=== PATIENT | female | born 1985 ===

== ENCOUNTER → 2016-03-17 | Outpatient (CLI) | payer OTHER ==
[~2016-03-17] MED LIST: MTR600X PO; OXYC-57 PO; PREN1TAB29 PO
== END | disposition home or self-care (01) ==
LOC: C.LABSPEC 10:57
PROVIDERS: ATTEND Obstetrics & Gynecology
DX: Z34.83 Encounter for supervision of other normal pregnancy, third trimester (principal)

== ENCOUNTER → 2016-03-24 | Outpatient (CLI) | payer OTHER ==
[2016-03-24 17:05] LABS: ALT/SGPT 25 U/L (12-78); BLOOD UREA NITROGEN 14 mg/dl (7-18); BUN/CREATININE RATIO 14.7 (10-20); CALCIUM 9.2 mg/dl (8.5-10.1); CARBON DIOXIDE 21 mmol/L (21-32); CHLORIDE 105 mmol/L (98-107); CREATININE 0.94 mg/dl (0.60-1.20); GLUCOSE 66 mg/dl (70-99); POTASSIUM 3.9 mmol/L (3.5-5.1); SODIUM 137 mmol/L (136-145)
[2016-03-24 17:07] LABS: HEMATOCRIT 32.3 % (37-47); MEAN CELL VOLUME 83.7 fL (80-100); MEAN CORPUSCULAR HEMOGLOBIN 27.5 pg (25-34); MEAN CORPUSCULAR HGB CONC 32.8 g/dl (32-36); MEAN PLATELET VOLUME 13.4 fL (7.4-10.4); PLATELET COUNT 117 K/uL (130-400); PLT ESTIMATE NORMAL; RED BLOOD COUNT 3.86 M/uL (4.2-5.4); WHITE BLOOD COUNT 5.78 K/uL (4.8-10.8)
[2016-03-24 17:08] LABS: ALB/GLOB RATIO 0.6 (0.9-2); ALKALINE PHOSPHATASE 98 U/L (45-117); AST/SGOT 30 U/L (15-37)
== END | disposition home or self-care (01) ==
LOC: C.LAB1850 15:06
PROVIDERS: ATTEND Obstetrics & Gynecology
DX: O13.3 Gestational [pregnancy-induced] hypertension without significant proteinuria, third trimester (principal)

== ENCOUNTER 2016-03-25 09:29 | Inpatient (IN) | payer OTHER ==
[2016-03-25] VITALS (10 sets, daily range): BP systolic 127–147; BP diastolic 80–92; PULSE 68–92; TEMP 36.5–36.9; O2SAT 95–98; Ht 177.8 cm; Wt 112.0 kg
[~2016-03-25] VITALS: Ht 177.8 cm; Wt 112.0 kg
[~2016-03-25 09:29] MED LIST changes: +CEFAZOLIN IV 2,000 MG in DEXTROSE 5% 50ML 50 ML IV SCH; -MTR600X PO; -OXYC-57 PO; -PREN1TAB29 PO
[2016-03-25] MEDS ORDERED: LACTATED RINGER'S 1000ML 1,000 ML IV ONE (09:31)
[2016-03-25] MEDS ORDERED: CITRIC ACID/SODIUM CITRATE 15 ML UDC PO ONE (09:45)
[2016-03-25 10:38] LABS: ALB/GLOB RATIO 0.6 (0.9-2); ALKALINE PHOSPHATASE 98 U/L (45-117); ALT/SGPT 26 U/L (12-78); AST/SGOT 32 U/L (15-37); BLOOD UREA NITROGEN 14 mg/dl (7-18); BUN/CREATININE RATIO 14.8 (10-20); CALCIUM 8.7 mg/dl (8.5-10.1); CARBON DIOXIDE 21 mmol/L (21-32); CHLORIDE 106 mmol/L (98-107); CREATININE 0.94 mg/dl (0.60-1.20); GLUCOSE 85 mg/dl (70-99); SODIUM 138 mmol/L (136-145)
[2016-03-25 10:39] LABS: HEMATOCRIT 32.5 % (37-47); MEAN CELL VOLUME 83.5 fL (80-100); MEAN CORPUSCULAR HEMOGLOBIN 27.5 pg (25-34); MEAN CORPUSCULAR HGB CONC 32.9 g/dl (32-36); MEAN PLATELET VOLUME 13.3 fL (7.4-10.4); PLATELET COUNT 119 K/uL (130-400); PLT ESTIMATE DECREASED; RED BLOOD COUNT 3.89 M/uL (4.2-5.4); WHITE BLOOD COUNT 5.91 K/uL (4.8-10.8)
[2016-03-25] MEDS ORDERED: FENTANYL CITRATE INJ 50 MCG/1 ML 2 ML VIAL ONE (11:35)
[2016-03-25] MEDS ORDERED: MoRPHine SULFATE PF 1 MG/ML 10 ML AMP/VIAL ONE (11:35)
[2016-03-25] MEDS ORDERED: PHENYLEPHRINE HCL INJ 10 MG/ML VIAL ONE (12:13)
[2016-03-25] MEDS ORDERED: ONDANSETRON INJ 2 MG/ML 2 ML VIAL ONE (12:13)
[2016-03-25] MEDS ORDERED: KETOROLAC TROMETHAMINE 30 MG/ML VIAL ONE (12:13)
[2016-03-25] MEDS ORDERED: OXYTOCIN INJ 10 UNITS/ML VIAL ONE (12:13)
[2016-03-25] MEDS ORDERED: BENZOCAINE 20% AER SPR 82.5 GM CAN EXT PRN (12:45)
[2016-03-25] MEDS ORDERED: SUPERCREAM 0.870 % 15GM JAR EXT PRN (12:45)
[2016-03-25] MEDS ORDERED: LANOLIN OINT EXT PRN ×2 (12:45)
[2016-03-25] MEDS ORDERED: HYDROCORTISONE ACETATE 25 MG SUPP PR PRN (12:45)
[2016-03-25] MEDS ORDERED: LACTATED RINGER'S 1000ML 1,000 ML IV SCH (12:45)
--- NOTE | 2016-03-25 12:51 | [facility] Post Operative Brief Note ---
Immediate Operative Summary Operative Date Mar 25, 2016. Pre-Operative Diagnosis 37 week IUP. Preeclampsia. History of section. Pt. desires a repeat section. Post-Operative Diagnosis Same as above Procedure(s) Performed Repeat low transverse section Surgeon Dr. Flores Cryptologic Linguist Surgeon(s) Dr. Lucas Estimated Blood Loss 500 cc Findings viable male apgars 9,10. normal uterus, tubes and ovaries bilaterally. Fluids (cc crystalloids) 1500 Specimens A: Placenta B: Cord blood Drains roche Anesthesia spinal with duramorph Complication(s) None Disposition Recovery Room / PACU
[2016-03-25] MEDS ORDERED: NALOXONE HCL INJ 1 MG in SODIUM CHLORIDE 0.9% 1000ML 1,000 ML IV PRN (12:57)
[2016-03-25] MEDS ORDERED: SODIUM CHLORIDE 0.9% 1000ML 1,000 ML IV PRN (12:57)
[2016-03-25] MEDS ORDERED: NALOXONE HCL INJ 0.08 MG in SYRINGE 1.8 ML IV PRN (12:57)
[2016-03-25] MEDS ORDERED: LACTATED RINGER'S 1000ML 500 ML IV PRN (12:57)
[2016-03-25] MEDS ORDERED: MoRPHine SULFATE 2 MG/ML CARP IV PRN (13:00)
[2016-03-25] MEDS ORDERED: MEPERIDINE HCL 25 MG/ML CARP IV PRN (13:00)
[2016-03-25] MEDS ORDERED: NALBUPHINE HCL INJ 10 MG/ML AMP IV PRN (13:00)
[2016-03-25] MEDS ORDERED: NALOXONE HCL 0.4 MG/1 ML VIAL/CARP IV PRN (13:00)
[2016-03-25] MEDS ORDERED: DiphenhydrAMINE HCL 50 MG/ML VIAL IV PRN ×2 (13:00)
[2016-03-25] MEDS ORDERED: PROMETHAZINE HCL INJ 25 MG in SODIUM CHLORIDE 0.9% 50ML 50 ML IV PRN (13:00)
[2016-03-25] MEDS ORDERED: MoRPHine SULFATE PF 1 MG/ML 10 ML AMP/VIAL EPI PRN (13:00)
[2016-03-25] MEDS ORDERED: ONDANSETRON INJ 2 MG/ML 2 ML VIAL IV PRN (13:00)
[2016-03-25] MEDS ORDERED: NO NARCOTICS OR SEDATIVES SCH (13:00)
[2016-03-25] MEDS ORDERED: EpHEDrine SULFATE INJ 50 MG/ML AMP IV PRN (13:00)
[2016-03-25] MEDS ORDERED: METOCLOPRAMIDE HCL INJ 20 MG in SODIUM CHLORIDE 0.9% 50ML 50 ML IV PRN (13:00)
--- NOTE | 2016-03-25 13:03 | Medical Student: [facility] ---
Immediate Operative Summary Operative Date Mar 25, 2016. Pre-Operative Diagnosis 37weeks-1day, preeclampsia, history of Post-Operative Diagnosis 37weeks-1day, preeclampsia, history of Procedure(s) Performed Surgeon Dr. Saida Flores Shrimp Trawler Captain Surgeon(s) Dr. Jesus Lucas Estimated Blood Loss 500ml Findings Male delivered, score 9-10 Complete placenta delivered. Normal uterus. Fluids (cc crystalloids) 1500mL Specimens Cord blood Placenta Drains Chakraborty catheter Anesthesia spinal Complication(s) None Disposition L&D
--- NOTE | 2016-03-25 13:10 | OPERATIVE REPORT ---
DATE OF OPERATION: 03/25/2016 PREOPERATIVE DIAGNOSES: 1. A 37-week intrauterine . 2. Preeclampsia. 3. History of section, desires repeat section. 4. Maternal obesity. POSTOPERATIVE DIAGNOSIS: Same. PROCEDURE: Repeat low transverse section. SURGEON: Dr. Saida Flores. LANDSCAPING SUPERVISOR: Lance PGY1. IV FLUIDS: 1500 mL. ESTIMATED BLOOD LOSS: 500 mL. ANESTHESIA: Spinal with Duramorph. FINDINGS: Viable male , Apgars 9 and 10, weight 7 pounds 13 ounces. Normal uterus, tubes and ovaries bilaterally. INDICATIONS: A 30-year-old 2, para 1-0-0-1 at 37 weeks estimated gestational age who presents with a diagnosis of preeclampsia. The patient has an indication for delivery; however, had a prior section and desires a repeat section. For that reason and we will proceed with section. DESCRIPTION OF PROCEDURE: The patient was taken to the operating room and identified. After adequate spinal anesthesia was obtained, she was placed in the supine position with a leftward tilt and prepped and draped in the usual sterile fashion. The knife was used to create a Pfannenstiel skin incision that was carried down to the underlying layer of fascia. The fascia was nicked in the midline and this opening was extended laterally using Ocasio scissors. Dylan clamps were placed in the superior and inferior aspects of the fascial incision tenting it upwards and the underlying rectus muscles were dissected off the overlying fascia both sharply and bluntly using Ocasio scissors. The rectus muscles were bluntly in the midline and the peritoneal cavity was bluntly entered into. This opening was then stretched. The bladder blade was placed. The vesicouterine peritoneum was elevated with a Connie clamp and the bladder flap was created both sharply and bluntly and the bladder blade was replaced. The knife was then used to create a hysterotomy that was then stretched. The amniotic sac was ruptured for clear fluid. The incinerator operator's hand was placed through the hysterotomy and the bladder blade was removed. The head was flexed and with fundal pressure, the cephalic was delivered. The nose and mouth were bulb suctioned. The shoulders and body were then delivered with ease and the infant was vigorous and crying at . The cord was clamped and cut and the was handed off to the awaiting transitions rn care coordinator. Cord blood was obtained. The placenta was manually expressed. The uterus was exteriorized and cleared of all clots and debris. The hysterotomy was closed in a running interlocking fashion using 0 Vicryl followed by a second imbricating layer of 0 Vicryl for excellent hemostasis. A small bleeding site at the central portion of the hysterotomy was stitched with a figure-of-8 suture of 0 Vicryl for excellent hemostasis. The pelvis was irrigated. The uterus was returned to the abdomen. The gutters were cleared of all clots and debris. Hysterotomy was reinspected and noted to be hemostatic. The fascia was closed in a running fashion using 0 Vicryl. Subcutaneous fat was copiously irrigated. The skin was reapproximated using 4-0 Vicryl in a subcuticular fashion. All sponge, lap and needle counts were correct x2. The patient was returned to the recovery room in stable condition. I attest to the content of the Intraoperative Record and any orders documented therein. Any exceptions are noted below. WALLY
[2016-03-25] MEDS: SIMETHICONE 80 MG CHEW PO SCH ×3 (14:01→20:37)
[2016-03-25] MEDS: OXYTOCIN INJ 20 UNITS in LACTATED RINGER'S 1000ML 1,000 ML IV SCH ×2 (14:04→23:11)
[2016-03-25] MEDS ORDERED: PREN1TAB29 PO (15:44)
--- NOTE | 2016-03-25 16:15 | Anesthesiology Progress Note ---
Anesthesia Post Op Note Date & Time Mar 25, 2016 at 16:14 Vital Signs Pain Intensity: 6.0 Notes Mental Status: alert / awake / arousable, participated in evaluation Pt Amnestic to Procedure: Yes Nausea / Vomiting: adequately controlled Pain: adequately controlled Airway Patency, RR, SpO2: stable & adequate BP & HR: stable & adequate Hydration State: stable & adequate Neuraxial Anesthesia: was administered, sensory block is resolving Anesthetic Complications: no major complications apparent
[2016-03-25] MEDS: DOCUSATE SODIUM 100 MG CAP PO SCH (20:36)
[2016-03-25] MEDS: KETOROLAC TROMETHAMINE 30 MG/ML VIAL IV. PRN (20:37)
[2016-03-26] VITALS (10 sets, daily range): BP systolic 125–148; BP diastolic 81–92; PULSE 76–97; TEMP 36.6–36.9; O2SAT 96–99
[2016-03-26] MEDS: KETOROLAC TROMETHAMINE 30 MG/ML VIAL IV. PRN (06:38)
--- NOTE | 2016-03-26 06:41 | Progress Note ---
Subjective Mar 26, 2016. Subjective conversation w/ patient, physical exam Voiding: roche catheter in place Passing Gas: Yes Diet Tolerance: Clear Liquids Lochia: Moderate Feeding Type: Breast Feeding Pain: some pain but using oral pain meds. Comment: no chest pain, sob, n/v, zimmer or visual change. no ruq pain. Objective Vital Signs Date Time Temp Pulse Resp B/P Pulse Ox O2 Delivery O2 Flow Rate FiO2 03/26/16 05:30 18 97 03/26/16 05:30 88 145/88 03/26/16 04:30 18 96 03/26/16 03:15 20 96 03/26/16 03:15 36.9 86 20 144/92 96 Room Air 03/26/16 02:10 18 96 03/26/16 01:30 18 98 03/26/16 00:30 20 99 03/25/16 23:40 36.7 81 18 144/89 96 Room Air 03/25/16 23:40 18 96 03/25/16 23:40 96 Room Air 03/25/16 22:30 18 97 03/25/16 21:30 18 96 03/25/16 20:30 36.7 80 16 127/80 97 Room Air 03/25/16 20:30 16 97 03/25/16 19:30 18 95 03/25/16 18:30 18 96 03/25/16 17:30 16 97 03/25/16 17:00 36.9 68 18 146/88 95 Room Air 03/25/16 16:30 18 97 03/25/16 15:30 36.5 92 18 147/92 98 Room Air 03/25/16 15:30 18 98 03/25/16 15:30 98 Room Air Physical Exam General Appearance: WELL-APPEARING, WD/WN, NO APPARENT DISTRESS Respiratory/Chest: lungs clear Cardiovascular: regular rate, rhythm Abdomen: non tender, soft Fundus: Firm, Relation to Umbilicus (at u) Incision Description: Clean, Dry & Intact Extremities: non-tender Laboratory Results Last 24 Hours Test 03/25/16 09:50 03/26/16 06:11 White Blood Count 5.91 K/uL Red Blood Count 3.89 M/uL Hemoglobin 10.7 g/dL Hematocrit 32.5 % Mean Corpuscular Volume 83.5 fL Mean Corpuscular Hemoglobin 27.5 pg Mean Corpuscular Hemoglobin Concent 32.9 g/dl RDW Standard Deviation 43.6 fL RDW Coefficient of Variation 14.3 % Platelet Count 119 K/uL Mean Platelet Volume 13.3 fL Platelet Estimate DECREASED Sodium Level 138 mmol/L Potassium Level 4.0 mmol/L Chloride Level 106 mmol/L Carbon Dioxide Level 21 mmol/L Anion Gap 11.0 mmol/L Blood Urea Nitrogen 14 mg/dl Creatinine 0.94 mg/dl Estimated GFR () 93.7 Estimated GFR (Non- 80.8 BUN/Creatinine Ratio 14.8 Random Glucose 85 mg/dl Calcium Level 8.7 mg/dl Total Bilirubin 0.1 mg/dl Aspartate Amino Transf (AST/SGOT) 32 U/L Alanine Aminotransferase (ALT/SGPT) 26 U/L Alkaline Phosphatase 98 U/L Total Protein 6.6 gm/dl Albumin 2.5 gm/dl Globulin 4.1 gm/dl Albumin/Globulin Ratio 0.6 Assessment and Plan Post-Op Day#: 1 Continue Routine Care: stable, routine care. d/c roche later today and await spont void. Cbc pending. bps ok.
[2016-03-26] MEDS ORDERED: DC INTRASPINAL MORPHINE SCH (07:00)
[2016-03-26 07:01] LABS: HEMATOCRIT 29.8 % (37-47); MEAN CELL VOLUME 83.5 fL (80-100); MEAN CORPUSCULAR HEMOGLOBIN 28.3 pg (25-34); MEAN CORPUSCULAR HGB CONC 33.9 g/dl (32-36); PLATELET COUNT 106 K/uL (130-400); RED BLOOD COUNT 3.57 M/uL (4.2-5.4); WHITE BLOOD COUNT 9.82 K/uL (4.8-10.8)
[2016-03-26] MEDS ORDERED: ZOLPIDEM TARTRATE 5 MG TAB PO PRN (07:01)
[2016-03-26] MEDS ORDERED: OXYCODONE/ACETAMINOPHEN 5-325 TAB PO PRN (07:01)
[2016-03-26] MEDS ORDERED: DiphenhydrAMINE HCL 50 MG/ML VIAL IV PRN (07:01)
[2016-03-26] MEDS ORDERED: ONDANSETRON INJ 2 MG/ML 2 ML VIAL IV PRN (07:01)
[2016-03-26] MEDS ORDERED: KETOROLAC TROMETHAMINE 30 MG/ML VIAL IV. PRN (07:01)
[2016-03-26 07:02] LABS: BASO % 0.1 %; BASO ABS # 0.01 K/uL (0-0.2); COMPLETE YES; IG% 0.2 %; LARGE PLATELETS 1+; LYMPH % 8.7 %; LYMPH ABS # 0.85 K/uL (1.2-3.4); MONO % 9.9 %; NEUT % 81.1 %; PLT ESTIMATE DECREASED; VACUOLIZATION 3+
[2016-03-26] MEDS: DOCUSATE SODIUM 100 MG CAP PO SCH ×2 (08:35→20:00)
[2016-03-26] MEDS: SIMETHICONE 80 MG CHEW PO SCH ×4 (08:35→20:00)
[2016-03-26] MEDS: OXYCODONE/ACETAMINOPHEN 5-325 TAB PO PRN ×3 (12:08→20:05)
[2016-03-26] MEDS: IBUPROFEN 600 MG TAB PO PRN (20:04)
[2016-03-27] MEDS ORDERED: MTR600X PO (06:15)
[2016-03-27] MEDS ORDERED: OXYC-57 PO (06:15)
--- NOTE | 2016-03-27 06:17 | Discharge Instructions ---
Discharge Instructions Admission Reason for Admission: Preeclampsia Discharge Discharge Diagnosis / Problem: RECOVERY FROM Discharge Goals Goal(s): Routine recovery after Activity Recommendations Activity Limitations: per Instructions/Follow-up section . Instructions / Follow-Up Instructions / Follow-Up ACTIVITY RECOMMENDATIONS: * Gradual return to full activity over the next 2-3 weeks. * No lifting - nothing heavier than baby over the next 2-3 weeks. * Do not engage in vigorous exercise, sexual activity or sports until cleared by your physician. * Do not drive or operate any motorized equipment until cleared by your physician. * You may shower/bathe daily. MEDICATIONS: For discomfort or pain, you may use Acetaminophen (Tylenol), Ibuprofen (Advil), or Naproxen (Aleve) following the package directions. For constipation you may use Colace following the package directions. BREAST CARE: If you are not breast feeding: * Wear a supportive bra 24 hours a day for one to two weeks. * Avoid stimulating your breasts and nipples as much as possible during the first few weeks after delivery. * When taking a shower, have the warm water hit your back, not breasts. * When your breasts feel full, apply ice packs. Usually three to four times a day helps ease the discomfort. * Take a mild pain medication (Tylenol / Motrin) when you are uncomfortable. If breast feeding: * Use breast milk to lubricate nipples. Lansinoh cream may be used for sore nipples. You do not need to remove cream prior to breast feeding. If using a different brand of cream, check the label for directions regarding removal of cream prior to nursing. * Wear a supportive bra. * If having problems with breasts or breast feeding, call a health care consultant or your health care provider. SPECIAL CARE INSTRUCTIONS: When you are discharged from the hospital, it is important for you to follow the instructions listed below: * During the first week at home, you should be able to care for yourself and your baby. In addition, the usual light household activities are encouraged. * Limit your activities to the way you feel. Do not try to clean the house or move furniture. Be sensible. * If you actively engage in sports and have done so up until the time of your delivery, you may resume these activities as soon as you feel able. This may take up to one month or even longer. Use good judgment. * Continue to take your vitamins for at least six weeks after the of your baby. * Your diet need not be limited unless you were on a special diet before your delivery. Breast-feeding mothers need around 2500 calories per day and at least 64-80 ounces of fluid per day (8 to 10 glasses). * You should eat foods from the four major food groups. Crash diets or fad diets are to be avoided. Eating lean meats, fresh fruits and vegetables, low-fat dairy products, high fiber foods and a regular exercise program, will help you get back to your pre- weight without putting your health at risk. * Constipation is sometimes a problem after delivery. Take a mild laxative as needed. If breast feeding, Milk of Magnesia is acceptable to use. You may use a suppository or Fleets enema. * A daily shower or tub bath is suggested. Wash incision daily with warm soapy water and pat dry. It doesn't need to be covered unless drainage is present. * A bloody vaginal discharge will usually continue until around four weeks . A small amount of bleeding may continue for as long as six weeks. Vaginal discharge changes from the bright red bleeding after delivery to pink then brownish and finally yellowish-pink before becoming white and disappearing. * Bleeding may increase with activity. Your first period may come in 4-8 weeks. If you are breast feeding, your period may be delayed even longer. * [place] (sex) can begin whenever both you and your partner feel comfortable and do not have any form of genital infection. It is recommended that you wait at least six weeks for internal and external healing to occur. If you have questions, please talk to your health care practitioner. A condom should be used to prevent infection and . * Foreplay, gentle intercourse and lubrication is very important the first several times to prevent pain. A water-based lubricant such as K-Y jelly or Astroglide may be used. * If you have RH negative blood and your baby is RH positive, you will receive RHOGAM by injection prior to discharge. The nurse will give you a card to keep with you that has the date and place that you received RHOGAM after delivery. * During your care, you had a Rubella screen done to check for the presence of rubella antibodies in your blood. If your test was negative, you will receive a Rubella vaccine prior to discharge. This vaccine may cause a fever, soreness at the injection site and flu-like symptoms. If these symptoms persist, notify your health care practitioner. is not advised for one month after a Rubella vaccine. * Verbalizes understanding of car seat law as reviewed with patient nursing. * Car Seat hand-out given and reviewed with patient by nursing. * Shaken baby information reviewed with patient by nursing. Call you doctor if: * Heavy bleeding (saturating several pads an hour) or passing clots the size of your fist. * A fever >101 degrees F (38.3 degrees C) on two occasions four hours apart and /or chills. * Unusual pain in the pelvic or vaginal areas. * Call the doctor for any increased redness, drainage or swelling around the incision and any pain unrelieved by prescribed pain medication. * "Baby Blues" lasting longer than two weeks. If you have any questions or concerns, call your health care practitioner at . FOLLOW UP VISIT: * Please call the office at to schedule a 6 week examination. It is important you keep this appointment. It is important for you to make arrangements for either yearly or twice yearly check-ups thereafter. Current Hospital Diet Patient's current hospital diet: Regular OB Diet Discharge Diet Recommended Diet: Regular OB Diet Procedures Procedures Performed: Repeat low transverse section Pending Studies Studies pending at discharge: no Medical Emergencies . Who to Call and When: Medical Emergencies: If at any time you feel your situation is an emergency, please call [phone] immediately. . Non-Emergent Contact Non-Emergency issues call your: Collator . . "Provider Documentation" section prepared by Esha Dave. VTE Core Measure Inpt VTE Proph given/why not?: Treatment not indicated
[2016-03-27 06:32] LABS: HEMATOCRIT 27.3 % (37-47)
--- NOTE | 2016-03-27 06:34 | Progress Note ---
Subjective Mar 27, 2016. Subjective conversation w/ patient, physical exam Ambulation: ambulating normally Voiding: no voiding problems Passing Gas: Yes Diet Tolerance: Regular Diet Feeding Type: Breast Feeding Pain: Incisional pain well controlled with medications Review of Systems Constitutional: No chills, No fever Respiratory: + shortness of breath (with standing), No cough Cardiac: No chest pain Breast: No breast pain Abdomen: No nausea, No pain, No vomiting Female : No dysuria Objective Vital Signs Date Time Temp Pulse Resp B/P Pulse Ox O2 Delivery O2 Flow Rate FiO2 03/26/16 23:15 36.6 91 18 127/81 Room Air 03/26/16 15:30 99 Room Air 03/26/16 15:30 36.7 97 18 148/87 99 Room Air 03/26/16 12:00 36.8 93 16 125/85 Room Air 03/26/16 08:15 97 Room Air 03/26/16 08:15 36.7 76 16 146/86 97 Room Air Physical Exam General Appearance: WELL-APPEARING, WD/WN, NO APPARENT DISTRESS Respiratory/Chest: lungs clear, normal breath sounds Cardiovascular: regular rate, rhythm, no gallop, no murmur Abdomen: non tender, soft Fundus: Firm, Relation to Umbilicus (At umbilicus) Incision Description: Clean, Dry & Intact Extremities: no calf tenderness Laboratory Results Last 24 Hours Test 03/27/16 06:10 Medications Current Inpatient Medications Medications (Trade) Dose Ordered Sig/Silverio Route Start Time Stop Time Status Last Admin Dose Admin Oxytocin 20 units/ Lactated Ringer's 1,002 ml @ 125 mls/hr Q8H1M IV 03/25/16 12:45 04/24/16 12:44 03/25/16 23:11 125 MLS/HR Lactated Ringer's (Lr 1000ml) 1,000 ml @ 125 mls/hr Q8H IV 03/25/16 12:45 04/24/16 12:44 Ketorolac Tromethamine (Toradol Inj) 30 mg Q6H PRN IV. 03/26/16 07:01 03/31/16 07:00 Oxycodone/ Acetaminophen (Percocet 5-325mg Tab) 1 tab Q4H PRN PO 03/26/16 07:01 04/09/16 07:00 03/26/16 20:05 1 TAB Oxycodone/ Acetaminophen (Percocet 5-325mg Tab) 2 tab Q4H PRN PO 03/26/16 07:01 04/09/16 07:00 Ibuprofen (Motrin Tab) 600 mg Q4H PRN PO 03/25/16 12:45 04/24/16 12:44 03/26/16 20:04 600 MG Ondansetron HCl (Zofran Inj) 4 mg Q4H PRN IV 03/26/16 07:01 04/25/16 07:00 Docusate Sodium (coLACE CAP) 100 mg BID PO 03/25/16 20:00 04/24/16 19:59 03/26/16 20:00 100 MG Cocaine HCl (Supercream 0.870% Cr) BID PRN EXT 03/25/16 12:45 04/08/16 12:44 Lanolin (Lanolin Oint) PRN PRN EXT 03/25/16 12:45 04/24/16 12:44 Hydrocortisone Acetate (Anusol Hc Supp) 25 mg BID PRN RI 03/25/16 12:45 04/24/16 12:44 Benzocaine (Dermoplast Aero Spr) 1 appln PRN PRN EXT 03/25/16 12:45 04/24/16 12:44 Zolpidem Tartrate (Ambien Tab) 5 mg HSZ PRN PO 03/26/16 07:01 04/25/16 07:00 Simethicone (Mylicon Chew Tab) 80 mg QID PO 03/25/16 13:00 04/24/16 12:59 03/26/16 20:00 80 MG Diphenhydramine HCl (Benadryl Cap) 25 mg QID PRN PO 03/26/16 07:01 04/25/16 07:00 Diphenhydramine HCl (Benadryl Inj) 25 mg QID PRN IV 03/26/16 07:01 04/25/16 07:00 Assessment and Plan Post-Op Day#: 2 Continue Routine Care: Resident Physician Supervision Note: I interviewed and examined the patient. Discussed with Dr. Lucas and agree with findings and plan as documented in the note. Any exceptions or clarifications are listed here: [None] Documented By: Esha Dave - Vital Signs reviewed and WNL (temp max 36.8) - Blood Type: A+, GBS+ , Rubella Immune - Patient doing well clinically - Encourage Ambulation today - Minor incisional pain that has been well controlled with medication - Tolerating PO Diet Well
[2016-03-27] MEDS: OXYCODONE/ACETAMINOPHEN 5-325 TAB PO PRN ×4 (06:42→20:09)
[2016-03-27] MEDS: IBUPROFEN 600 MG TAB PO PRN ×4 (06:43→20:08)
--- NOTE | 2016-03-27 06:51 | Medical Student: [facility] ---
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 Subjective conversation w/ patient, physical exam Ambulation: ambulating normally Voiding: no voiding problems Passing Gas: Yes Diet Tolerance: Regular Diet Lochia: Moderate Feeding Type: Breast Feeding Notes: Pain with peeing, no burning, roche catheter out yesterday Also pain at the incisional site Controlled with medication Review of Systems Constitutional: No chills, No fever Respiratory: + shortness of breath (with standing), No cough Cardiac: No chest pain Abdomen: + pain Female : + see HPI Objective Vital Signs Date Time Temp Pulse Resp B/P Pulse Ox O2 Delivery O2 Flow Rate FiO2 03/26/16 23:15 36.6 91 18 127/81 Room Air 03/26/16 15:30 99 Room Air 03/26/16 15:30 36.7 97 18 148/87 99 Room Air 03/26/16 12:00 36.8 93 16 125/85 Room Air 03/26/16 08:15 97 Room Air 03/26/16 08:15 36.7 76 16 146/86 97 Room Air Physical Exam General Appearance: WELL-APPEARING, WD/WN, NO APPARENT DISTRESS Respiratory/Chest: lungs clear, normal breath sounds Cardiovascular: regular rate, rhythm, no murmur Abdomen: non tender, soft Fundus: Firm Incision Description: Clean, Dry & Intact Extremities: normal inspection Laboratory Results Last 24 Hours Test 03/27/16 06:10 Hemoglobin 9.2 g/dL Hematocrit 27.3 % Medications Current Inpatient Medications Medications (Trade) Dose Ordered Sig/Silverio Route Start Time Stop Time Status Last Admin Dose Admin Oxytocin 20 units/ Lactated Ringer's 1,002 ml @ 125 mls/hr Q8H1M IV 03/25/16 12:45 04/24/16 12:44 03/25/16 23:11 125 MLS/HR Lactated Ringer's (Lr 1000ml) 1,000 ml @ 125 mls/hr Q8H IV 03/25/16 12:45 04/24/16 12:44 Ketorolac Tromethamine (Toradol Inj) 30 mg Q6H PRN IV. 03/26/16 07:01 03/31/16 07:00 Oxycodone/ Acetaminophen (Percocet 5-325mg Tab) 1 tab Q4H PRN PO 03/26/16 07:01 2//17 07:00 03/26/16 20:05 1 TAB Oxycodone/ Acetaminophen (Percocet 5-325mg Tab) 2 tab Q4H PRN PO 03/26/16 07:01 04/09/16 07:00 Ibuprofen (Motrin Tab) 600 mg Q4H PRN PO 03/25/16 12:45 04/24/16 12:44 03/26/16 20:04 600 MG Ondansetron HCl (Zofran Inj) 4 mg Q4H PRN IV 03/26/16 07:01 04/25/16 07:00 Docusate Sodium (coLACE CAP) 100 mg BID PO 03/25/16 20:00 04/24/16 19:59 03/26/16 20:00 100 MG Cocaine HCl (Supercream 0.870% Cr) BID PRN EXT 03/25/16 12:45 04/08/16 12:44 Lanolin (Lanolin Oint) PRN PRN EXT 03/25/16 12:45 04/24/16 12:44 Hydrocortisone Acetate (Anusol Hc Supp) 25 mg BID PRN NC 03/25/16 12:45 04/24/16 12:44 Benzocaine (Dermoplast Aero Spr) 1 appln PRN PRN EXT 03/25/16 12:45 04/24/16 12:44 Zolpidem Tartrate (Ambien Tab) 5 mg HSZ PRN PO 03/26/16 07:01 04/25/16 07:00 Simethicone (Mylicon Chew Tab) 80 mg QID PO 03/25/16 13:00 04/24/16 12:59 03/26/16 20:00 80 MG Diphenhydramine HCl (Benadryl Cap) 25 mg QID PRN PO 03/26/16 07:01 04/25/16 07:00 Diphenhydramine HCl (Benadryl Inj) 25 mg QID PRN IV 03/26/16 07:01 04/25/16 07:00 Assessment and Plan Post-Op Day Number: 2 Continue Routine Care: 30 year-old female with POD#2 Vitals are stable BP 127/81 Labs reviewed - Low Hb 9.2, Hct 27.3 Blood type A+, GBS+, Rubella immune No signs of infection at incisional site. Plan Tolerating PO diet okay Encourage ambulation Pain - controlled with medications. Explained to patient that she might experience some pain with urination for some time after the roche catheter is out.
[2016-03-27 07:50] VITALS: BP 130/87; PULSE 82; TEMP 36.7; O2SAT 99
[2016-03-27] MEDS: DOCUSATE SODIUM 100 MG CAP PO SCH ×2 (08:56→20:09)
[2016-03-27] MEDS: SIMETHICONE 80 MG CHEW PO SCH ×4 (08:56→20:09)
[2016-03-27 15:30] VITALS: BP 135/88; PULSE 84; TEMP 36.5
[2016-03-27 23:50] VITALS: BP 134/88; PULSE 78; TEMP 36.6; O2SAT 98
[2016-03-28] MEDS: IBUPROFEN 600 MG TAB PO PRN ×2 (04:22→08:51)
--- NOTE | 2016-03-28 06:40 | Progress Note ---
Subjective Mar 28, 2016. Subjective conversation w/ patient, physical exam Ambulation: ambulating normally Voiding: no voiding problems Diet Tolerance: Regular Diet Lochia: Small Feeding Type: Breast Feeding Pain: Incisional pain well controlled with heating pad Review of Systems Constitutional: No chills, No fever Respiratory: No cough, No shortness of breath Cardiac: No chest pain Breast: No breast lump Abdomen: No nausea, No pain, No vomiting Female : No dysuria Objective Vital Signs Date Time Temp Pulse Resp B/P Pulse Ox O2 Delivery O2 Flow Rate FiO2 03/27/16 23:50 98 Room Air 03/27/16 23:50 36.6 78 18 134/88 98 03/27/16 15:30 Room Air 03/27/16 15:30 36.5 84 20 135/88 Room Air 03/27/16 07:50 36.7 82 16 130/87 99 Room Air 03/27/16 07:50 99 Room Air Physical Exam General Appearance: WELL-APPEARING, WD/WN, NO APPARENT DISTRESS Respiratory/Chest: lungs clear, normal breath sounds Cardiovascular: regular rate, rhythm, no gallop, no murmur Abdomen: normal bowel sounds, soft Fundus: Firm, Relation to Umbilicus (1cm above umbilicus) Extremities: no calf tenderness, + pedal edema Medications Current Inpatient Medications Medications (Trade) Dose Ordered Sig/Silverio Route Start Time Stop Time Status Last Admin Dose Admin Oxytocin 20 units/ Lactated Ringer's 1,002 ml @ 125 mls/hr Q8H1M IV 03/25/16 12:45 04/24/16 12:44 03/25/16 23:11 125 MLS/HR Lactated Ringer's (Lr 1000ml) 1,000 ml @ 125 mls/hr Q8H IV 03/25/16 12:45 04/24/16 12:44 Ketorolac Tromethamine (Toradol Inj) 30 mg Q6H PRN IV. 03/26/16 07:01 03/31/16 07:00 Oxycodone/ Acetaminophen (Percocet 5-325mg Tab) 1 tab Q4H PRN PO 03/26/16 07:01 04/09/16 07:00 03/27/16 20:09 1 TAB Oxycodone/ Acetaminophen (Percocet 5-325mg Tab) 2 tab Q4H PRN PO 03/26/16 07:01 04/09/16 07:00 Ibuprofen (Motrin Tab) 600 mg Q4H PRN PO 03/25/16 12:45 04/24/16 12:44 03/28/16 04:22 600 MG Ondansetron HCl (Zofran Inj) 4 mg Q4H PRN IV 03/26/16 07:01 04/25/16 07:00 Docusate Sodium (coLACE CAP) 100 mg BID PO 03/25/16 20:00 04/24/16 19:59 03/27/16 20:09 100 MG Cocaine HCl (Supercream 0.870% Cr) BID PRN EXT 03/25/16 12:45 04/08/16 12:44 Lanolin (Lanolin Oint) PRN PRN EXT 03/25/16 12:45 04/24/16 12:44 Hydrocortisone Acetate (Anusol Hc Supp) 25 mg BID PRN AK 03/25/16 12:45 04/24/16 12:44 Benzocaine (Dermoplast Aero Spr) 1 appln PRN PRN EXT 03/25/16 12:45 04/24/16 12:44 Zolpidem Tartrate (Ambien Tab) 5 mg HSZ PRN PO 03/26/16 07:01 04/25/16 07:00 Simethicone (Mylicon Chew Tab) 80 mg QID PO 03/25/16 13:00 04/24/16 12:59 03/27/16 20:09 80 MG Diphenhydramine HCl (Benadryl Cap) 25 mg QID PRN PO 03/26/16 07:01 04/25/16 07:00 Diphenhydramine HCl (Benadryl Inj) 25 mg QID PRN IV 03/26/16 07:01 04/25/16 07:00 Assessment and Plan Post-Op Day#: 3 Continue Routine Care: - Vital Signs reviewed and WNL (temp max 36.6) - Blood Type: A+, GBS+ , Rubella Immune - Patient doing well clinically - Encourage Ambulation today - Incisional pain well controlled with heating pad today - Tolerating PO Diet Well - Discharge today Resident Physician Supervision Note: I interviewed and examined the patient. Discussed with Dr. Dloomy and agree with findings and plan as documented in the note. Any exceptions or clarifications are listed here: [None] Documented By: Thaddeus Florez
[2016-03-28 07:45] VITALS: BP 146/92; PULSE 86; TEMP 36.7; O2SAT 100
[2016-03-28] MEDS: SIMETHICONE 80 MG CHEW PO SCH (08:50)
[2016-03-28] MEDS: DOCUSATE SODIUM 100 MG CAP PO SCH (08:50)
[2016-03-28] MEDS: OXYCODONE/ACETAMINOPHEN 5-325 TAB PO PRN (08:51)
[2016-03-28 10:30] VITALS: BP_DIAS 92; PULSE 86; TEMP 36.7
--- NOTE | 2016-04-03 15:05 | DISCHARGE SUMMARY ---
ADMISSION DIAGNOSES: 1. A 37-week intrauterine . 2. Preeclampsia. 3. History of section. 4. Desires repeat section. DISCHARGE DIAGNOSES: Same. PROCEDURE: Repeat low transverse section. BRIEF HISTORY AND HOSPITAL COURSE: This 30-year-old 2, para 1-0-0-1 at 37 weeks estimated gestational age who presents with a diagnosis of preeclampsia with plan for delivery. The patient had a prior section and desires repeat section. For that reason, the above stated procedure was performed without incident. Her estimated blood loss was 500 mL. Her postop hemoglobin was 9.2. On her postop day #3, she was tolerating a regular diet, voiding spontaneously without difficulty and ambulating without difficulty. Her pain control was adequate on oral pain meds. She was encouraged to follow up in 6 weeks' time for a checkup. She was given appropriate instructions and pain medication prescriptions.
== END 2016-03-28 10:45 | disposition home or self-care (01) | DRG 766 ==
LOC: C.LD 09:29 → C.OBG 15:06
PROVIDERS: ADMIT Obstetrics & Gynecology; ATTEND Obstetrics & Gynecology
PROC: 10D00Z1 Extraction of Products of Conception, Low, Open Approach (ICD-10-PCS; principal; 2016-03-25 11:17)
DX: O14.03 Mild to moderate pre-eclampsia, third trimester (principal); O34.211 Maternal care for low transverse scar from previous cesarean delivery; O13.9 Gestational [pregnancy-induced] hypertension without significant proteinuria, unspecified trimester; O99.824 Streptococcus B carrier state complicating childbirth; O99.214 Obesity complicating childbirth; Z37.0 Single live birth; Z3A.37 37 weeks gestation of pregnancy; Z68.35 Body mass index [BMI] 35.0-35.9, adult

== ENCOUNTER → 2016-05-05 | Outpatient (CLI) | payer OTHER ==
[~2016-05-05] MED LIST changes: -CEFAZOLIN IV 2,000 MG in DEXTROSE 5% 50ML 50 ML IV SCH; +MTR600X PO; +OXYC-57 PO; +PREN1TAB29 PO
== END | disposition home or self-care (01) ==
LOC: C.PAPS 15:06
PROVIDERS: ATTEND Obstetrics & Gynecology
DX: Z12.4 Encounter for screening for malignant neoplasm of cervix (principal)

== ENCOUNTER → 2017-03-22 | Outpatient (CLI) | payer OTHER ==
[2017-03-22 16:35] LABS: BASO % 0.3 %; BASO ABS # 0.01 K/uL (0-0.2); EOS % 2.1 %; EOS ABS # 0.08 K/uL (0-0.5); HEMATOCRIT 41.1 % (37-47); HEMOGLOBIN 13.6 g/dL (12.0-16.0); IG# 0.01 K/uL (0.00-0.02); LYMPH % 45.5 %; LYMPH ABS # 1.73 K/uL (1.2-3.4); MEAN CELL VOLUME 87.1 fL (80-100); MEAN CORPUSCULAR HEMOGLOBIN 28.8 pg (25-34); MEAN CORPUSCULAR HGB CONC 33.1 g/dl (32-36); MEAN PLATELET VOLUME 12.7 fL (7.4-10.4); MONO ABS # 0.38 K/uL (0.11-0.59); NEUT % 41.8 %; NEUT ABS # 1.59 K/uL (1.4-6.5); PLATELET COUNT 225 K/uL (130-400); RED CELL DISTRIBUTION WIDTH SD 44.4 fL (36.4-46.3)
[2017-03-22 16:58] LABS: ALBUMIN 4.1 gm/dl (3.4-5.0); ALT/SGPT 34 U/L (12-78); AST/SGOT 22 U/L (15-37); BLOOD UREA NITROGEN 16 mg/dl (7-18); CARBON DIOXIDE 26 mmol/L (21-32); CREATININE 0.96 mg/dl (0.60-1.20); GLUCOSE 81 mg/dl (70-99); SODIUM 133 mmol/L (136-145)
[2017-03-22 17:09] LABS: ALKALINE PHOSPHATASE 78 U/L (45-117); CHOLESTEROL 183 mg/dl (0-200); LDL CHOLESTEROL CALCULATED 101 mg/dl; TOTAL PROTEIN 8.5 gm/dl (6.4-8.2)
== END | disposition home or self-care (01) ==
LOC: C.LAB1850 15:03
PROVIDERS: ATTEND Physician Assistant
DX: Z00.00 Encounter for general adult medical examination without abnormal findings (principal); R42 Dizziness and giddiness

== ENCOUNTER → 2017-06-15 | Outpatient (CLI) | payer OTHER | END | disposition home or self-care (01) | LOC: C.PAPS 14:36 | PROVIDERS: ATTEND Physician Assistant | DX: Z12.4 Encounter for screening for malignant neoplasm of cervix (principal) ==